=== PATIENT | male | born 1950 | race Caucasian/White ===

== ENCOUNTER 2016-11-21 16:44 | Emergency (ER) | payer OTHER ==
[~2016-11-21] VITALS: Ht 175.3 cm; Wt 85.3 kg
[~2016-11-21 16:44] MED LIST: BAY PO; METHOCARBAMOL500 MG PO; METOPROLOL SUCC25 M1 PO; TOP50 PO; ZES20 PO; ZOC20 PO
[2016-11-21 20:05] VITALS: BP 162/78
== END 2016-11-21 20:06 | disposition home or self-care (01) ==
LOC: ED 16:44
DX: R05 Cough (principal)
CPT/HCPCS: J7030

== ENCOUNTER 2017-06-07 17:27 | Emergency (ER) | payer OTHER ==
[~2017-06-07] VITALS: Ht 170.2 cm; Wt 79.4 kg
[2017-06-07 20:15] LABS: BASOPHIL % 0.1 % (0-2); PLATELET COUNT 249 x10^3mcL (130-400); RED CELL DISTRIBUTION WIDTH 14.4 % (11.5-14.5)
[2017-06-07 20:31] LABS: CALCIUM 8.7 mg/dL (8.5-10.1); CARBON DIOXIDE 24.4 mmol/L (21-32); CREATININE SERUM 1.5 mg/dL (0.7-1.3); POTASSIUM SERUM 3.9 mmol/L (3.5-5.1)
[2017-06-07 20:36] LABS: ALBUMIN 3.5 g/dL (3.4-5.0); BILIRUBIN TOTAL 0.6 mg/dL (0.20-1.00)
[2017-06-07 20:37] LABS: TOTAL PROTEIN, SERUM 8.4 g/dL (6.4-8.2)
[2017-06-07 22:11] VITALS: BP 112/58
== END 2017-06-07 22:11 | disposition home or self-care (01) ==
LOC: ED 17:27
PROVIDERS: Emergency Medicine
DX: R10.9 Unspecified abdominal pain (principal); R11.10 Vomiting, unspecified; R19.7 Diarrhea, unspecified; I10 Essential (primary) hypertension
CPT/HCPCS: J1885; J2270; J2405; J3490; J7030

== ENCOUNTER 2017-06-11 00:04 | Inpatient (IN) | payer OTHER ==
[~2017-06-11] VITALS: Ht 167.6 cm; Wt 78.9 kg
[2017-06-11 01:24] LABS: PLATELET COUNT 337 x10^3mcL (130-400); RED CELL DISTRIBUTION WIDTH 13.3 % (11.5-14.5)
[2017-06-11 01:36] LABS: ALBUMIN 3.6 g/dL (3.4-5.0); BILIRUBIN TOTAL 0.33 mg/dL (0.20-1.00); CALCIUM 9.1 mg/dL (8.5-10.1); CARBON DIOXIDE 21.2 mmol/L (21-32); MAGNESIUM 2.5 mg/dL (1.8-2.4); POTASSIUM SERUM 3.3 mmol/L (3.5-5.1)
[2017-06-11 01:41] LABS: CREATININE SERUM 4.6 mg/dL (0.7-1.3); TOTAL PROTEIN, SERUM 8.3 g/dL (6.4-8.2)
[2017-06-11 01:54] LABS: BAND NEUTROPHIL 3 % (0-10); BASOPHIL 0 % (0-2); METAMYELOCTE 1 % (0-2); MONOCYTE 12 % (0-7); SEGMENTED NEUTROPHILS 56 % (37-75)
[2017-06-11 01:58] LABS: PLATELET MORPHOLOGY PLATELETS NORMAL; rbc morphology (normal/abnorm) NORMAL (NORMAL)
[2017-06-11 03:36] VITALS: BP 96/50
[2017-06-11 03:38] LABS: PHOSPHOROUS 5.7 mg/dL (2.5-4.9)
[2017-06-11 03:39] LABS: CHOLESTEROL/HDL RATIO 6.5
[2017-06-11 03:50] LABS: T3 TOTAL 1.04 ng/mL
[2017-06-11 04:01] LABS: FREE T4 1.54 ng/dL (0.76-1.46); FREE THYROXINE INDEX 3.7 ug/dL (1.4-4.5); T4(THYROXINE) 9.6 ug/dL (4.7-13.3)
[2017-06-11 06:59] LABS: BASOPHIL % 0.2 % (0-2); PLATELET COUNT 230 x10^3mcL (130-400); RED CELL DISTRIBUTION WIDTH 13.9 % (11.5-14.5)
[2017-06-11 07:25] LABS: CALCIUM 8.3 mg/dL (8.5-10.1); CARBON DIOXIDE 20.1 mmol/L (21-32); POTASSIUM SERUM 3.6 mmol/L (3.5-5.1)
[2017-06-11 07:35] LABS: CREATININE SERUM 4.1 mg/dL (0.7-1.3)
[2017-06-11 08:18] VITALS: BP 105/54
[2017-06-11 10:14] LABS: microscopic required? YES; urine erythrocyte NEGATIVE (NEGATIVE)
[2017-06-11 10:46] LABS: AMPHETAMINE QUAL UR NONE DETECTED (NEG <=1000)
[2017-06-11 13:30] VITALS: BP 142/65; BP 90/54
[2017-06-11 17:54] VITALS: BP 98/63
[2017-06-11 21:32] VITALS: BP 110/56
[2017-06-12 05:49] VITALS: BP 125/64
[2017-06-12 07:17] LABS: BASOPHIL % 0.3 % (0-2); PLATELET COUNT 247 x10^3mcL (130-400); RED CELL DISTRIBUTION WIDTH 14.3 % (11.5-14.5)
[2017-06-12 07:19] LABS: CALCIUM 8.1 mg/dL (8.5-10.1); CARBON DIOXIDE 21.7 mmol/L (21-32); CREATININE SERUM 2.3 mg/dL (0.7-1.3); MAGNESIUM 2.1 mg/dL (1.8-2.4); PHOSPHOROUS 3.4 mg/dL (2.5-4.9); POTASSIUM SERUM 4.1 mmol/L (3.5-5.1)
[2017-06-12 09:42] VITALS: BP 128/60
[2017-06-12 18:04] VITALS: BP 142/54
[2017-06-12 21:57] VITALS: BP 120/56
[2017-06-13 05:51] VITALS: BP 126/51
[2017-06-13 06:50] LABS: CALCIUM 7.8 mg/dL (8.5-10.1); CARBON DIOXIDE 19.8 mmol/L (21-32); CREATININE SERUM 1.4 mg/dL (0.7-1.3); MAGNESIUM 1.7 mg/dL (1.8-2.4); PHOSPHOROUS 2.8 mg/dL (2.5-4.9)
[2017-06-13 07:15] LABS: BASOPHIL % 0.3 % (0-2); PLATELET COUNT 252 x10^3mcL (130-400); RED CELL DISTRIBUTION WIDTH 13.9 % (11.5-14.5)
[2017-06-13 09:08] VITALS: BP 130/59
[2017-06-13 12:01] VITALS: BP 132/61
[2017-06-13 17:11] VITALS: BP 144/61
[2017-06-13 21:39] VITALS: BP 135/53
[2017-06-14 05:46] VITALS: BP 122/59
[2017-06-14 06:13] LABS: CALCIUM 8.2 mg/dL (8.5-10.1); CARBON DIOXIDE 21.1 mmol/L (21-32); CREATININE SERUM 1.3 mg/dL (0.7-1.3); MAGNESIUM 1.7 mg/dL (1.8-2.4); PHOSPHOROUS 3.2 mg/dL (2.5-4.9); POTASSIUM SERUM 3.9 mmol/L (3.5-5.1)
[2017-06-14 06:24] LABS: BASOPHIL % 0.3 % (0-2); PLATELET COUNT 262 x10^3mcL (130-400); RED CELL DISTRIBUTION WIDTH 13.8 % (11.5-14.5)
[2017-06-14 09:39] VITALS: BP 131/63
[2017-06-14 17:29] VITALS: BP 137/59
[2017-06-14 21:27] VITALS: BP 145/61
[2017-06-15 05:57] VITALS: BP 133/54
[2017-06-15 06:26] LABS: CALCIUM 8.4 mg/dL (8.5-10.1); CARBON DIOXIDE 20.7 mmol/L (21-32); CHLORIDE SERUM 111 mmol/L (98-107); CREATININE SERUM 1.2 mg/dL (0.7-1.3); GFR1 > 60 mL/min; GLUCOSE SERUM 94 mg/dL (74-106); MAGNESIUM 1.5 mg/dL (1.8-2.4); PHOSPHOROUS 3.7 mg/dL (2.5-4.9); POTASSIUM SERUM 3.9 mmol/L (3.5-5.1); SODIUM SERUM 139 mmol/L (136-145)
[2017-06-15 06:44] LABS: BASOPHIL % 0.2 % (0-2); PLATELET COUNT 277 x10^3mcL (130-400); RED CELL DISTRIBUTION WIDTH 13.8 % (11.5-14.5)
[2017-06-15 08:34] VITALS: BP 143/65
[2017-06-15] MEDS ORDERED: LOM PO (09:37)
[2017-06-15] MEDS ORDERED: BEN10 PO (09:37)
[2017-06-15] MEDS ORDERED: LAC PO (09:39)
[2017-06-15] MEDS ORDERED: THERA TABS1 TAB PO (09:39)
[2017-06-15] MEDS ORDERED: MAGNESIUM OXID400 MG PO (12:05)
[2017-06-15 13:21] VITALS: BP 143/65
== END 2017-06-15 15:40 | disposition home or self-care (01) | DRG 391 ==
LOC: ED 00:04 → DU 02:36 → MU 02:36 → DU 03:24 → MU 06-12 06:44
PROVIDERS: Emergency Medicine; Family Medicine; ADMIT Family Medicine Sports Medicine
DX: A08.4 Viral intestinal infection, unspecified (principal); N17.0 Acute kidney failure with tubular necrosis; E87.1 Hypo-osmolality and hyponatremia; F13.20 Sedative, hypnotic or anxiolytic dependence, uncomplicated; E87.6 Hypokalemia; E83.41 Hypermagnesemia; E83.39 Other disorders of phosphorus metabolism; E78.5 Hyperlipidemia, unspecified; I10 Essential (primary) hypertension; E83.51 Hypocalcemia; R91.8 Other nonspecific abnormal finding of lung field; Z68.28 Body mass index [BMI] 28.0-28.9, adult; Z79.82 Long term (current) use of aspirin
CPT/HCPCS: 82962; 83880; 84439; 87046; 87046-59; J1956; J2405; J2543; J3010; J3475; J3490; J7030; Q0092